=== PATIENT | female | born 1975 | race Caucasian/White ===

== ENCOUNTER 2018-03-31 11:26 | Emergency (ER) | payer OTHER | END 2018-03-31 12:29 | disposition home or self-care (01) | LOC: E/R 11:26 | DX: G56.22 Lesion of ulnar nerve, left upper limb (principal); R40.2142 Coma scale, eyes open, spontaneous, at arrival to emergency department; R40.2362 Coma scale, best motor response, obeys commands, at arrival to emergency department; R40.2252 Coma scale, best verbal response, oriented, at arrival to emergency department; R20.2 Paresthesia of skin | CPT/HCPCS: 99282; Z7502 ==